=== PATIENT | male | born 1985 | race Caucasian/White ===

== ENCOUNTER 2018-01-22 10:58 | Inpatient (IN) | payer MEDICAID ==
[~2018-01-22] VITALS: Ht 152.4 cm; Wt 111.2 kg
[2018-01-22] MEDS: OXYcodone 5 MG/5 ML ORAL.SOL UDC PO PRN ×2 (08:45→18:45)
[2018-01-22] MEDS ORDERED: ONDANSETRON ODT 4 MG ONE (12:11)
[2018-01-22] MEDS ORDERED: MORPHINE SULFATE 4 MG/ML, 1ML ONE ×3 (12:12→19:09)
[2018-01-22 12:18] LABS: BASOPHILS % (AUTO) 0 % (0-1); EOSINOPHILS # (AUTO) 0.04 x10^3/uL (0-0.4); EOSINOPHILS % (AUTO) 0 % (1-7); LYMPHOCYTES % (AUTO) 6 % (22-44); MD NO; MEAN CORPUSCULAR HGB CONC 34.3 g/dL (33.2-36.2); MEAN CORPUSCULAR VOLUME 84.4 fL (81-97); MEAN PLATELET VOLUME 8.1 fL (7.4-10.4); MONOCYTES # (AUTO) 0.19 x10^3/uL (0.2-0.8); MONOCYTES % (AUTO) 2 % (2-9); NEUTROPHILS # (AUTO) 10.07 x10^3/uL (1.8-6.8); NEUTROPHILS % (AUTO) 92 % (42-75); PLATELET COUNT 230 x10^3/uL (130-400); RED BLOOD COUNT 5.84 x10^6/uL (4.38-5.82); RED CELL DISTRIBUTION WIDTH 12.8 % (9.4-14.8)
[2018-01-22] MEDS: MORPHINE SULFATE 4 MG/ML, 1ML IVPush PRN ×8 (12:20→19:25)
[2018-01-22] MEDS ORDERED: ONDANSETRON ODT 4 MG PO ONE (12:30)
[2018-01-22] MEDS ORDERED: SODIUM CHLORIDE 0.9% 1,000ML IV ONE (12:30)
[2018-01-22] MEDS ORDERED: SODIUM CHLORIDE FLUSH 10ML SYR IVF ONE (12:30)
[2018-01-22 12:31] LABS: ALANINE AMINOTRANSFERASE 57 U/L (12-78); ALBUMIN 4.6 g/dL (3.4-5.0); ANION GAP 9 mmol/L (5-15); CALCIUM 9.4 mg/dL (8.5-10.1); CHLORIDE 107 mmol/L (98-107); CREATININE 1.46 mg/dL (0.7-1.3)
[2018-01-22 12:33] LABS: ALKALINE PHOSPHATASE 81 U/L (45-117); BILIRUBIN,TOTAL 1.7 mg/dL (0.2-1.0); TOTAL PROTEIN 8.4 g/dL (6.4-8.2)
[2018-01-22 13:44] LABS: MICROSCOPIC AUTO
[2018-01-22 13:46] LABS: CULTURE INDICATED? NO
[2018-01-22] MEDS ORDERED: ONDANSETRON 2MG/ML, 2ML ONE ×2 (15:54→17:20)
[2018-01-22] MEDS ORDERED: ONDANSETRON 2MG/ML, 2ML IVPush ONE (16:00)
[2018-01-22] MEDS: SODIUM CHLORIDE 0.9% 1,000 ML IV SCH ×2 (17:03→23:43)
[2018-01-22] MEDS ORDERED: MIDAZOLAM 1 MG/ML, 2ML ONE (17:07)
[2018-01-22] MEDS ORDERED: EPINEPHRINE 1 MG/ML, 1ML ONE (17:09)
[2018-01-22] MEDS ORDERED: BUPIVACAINE/PF 0.25% ONE (17:09)
[2018-01-22] MEDS ORDERED: FENTANYL PF 250 MCG/5ML ONE (17:11)
[2018-01-22] MEDS ORDERED: ROCURONIUM 10 MG/ML,10ML ONE (17:20)
[2018-01-22] MEDS ORDERED: PROPOFOL 10 MG/ML, 50ML ONE (17:20)
[2018-01-22] MEDS ORDERED: SUCCINYLCHOLINE 20 MG/ML, 10ML ONE (17:20)
[2018-01-22] MEDS ORDERED: CEFAZOLIN 1,000 MG ONE (17:20)
[2018-01-22] MEDS ORDERED: DEXAMETHASONE 4 MG/ML, 1ML ONE (17:20)
[2018-01-22] MEDS ORDERED: hydrALAzine 20 MG/ML, 1ML IVPush PRN (17:30)
[2018-01-22] MEDS ORDERED: morphine SULFATE 10 MG/ML, 1ML IVPush PRN (17:30)
[2018-01-22] MEDS ORDERED: BUPIVACAINE/PF-EPI 0.25% 1:200K IM ONE (17:40)
[2018-01-22] MEDS ORDERED: MEPERIDINE/PF 50 MG/ML ONE (17:46)
[2018-01-22] MEDS ORDERED: SUGAMMADEX 200 MG/2 ML IVPush ONE (18:00)
[2018-01-22 18:45] LABS: FREE T4 (FREE THYROXINE) 0.94 ng/dL (0.76-1.46); THYROID STIMULATING HORMONE 1.16 mIU/L (0.358-3.740)
[2018-01-22] MEDS ORDERED: OXYcodone 5 MG/5 ML ORAL.SOL UDC ONE (18:49)
[2018-01-22] MEDS: FENTANYL PF 100 MCG/2ML IV PRN ×3 (18:50→19:05)
[2018-01-22] MEDS ORDERED: FENTANYL PF 100 MCG/2ML ONE (18:51)
[2018-01-22] MEDS ORDERED: ALBUTEROL SULFATE 2.5 MG/3 ML NPPB PRN (19:00)
[2018-01-22] MEDS ORDERED: hydrALAzine 20 MG/ML, 1ML IV PRN (19:00)
[2018-01-22] MEDS ORDERED: ACETAMINOPHEN 325 MG TABLET PO PRN (19:00)
[2018-01-22] MEDS ORDERED: LORazepam 2 MG/ML, 1ML IVPush PRN (19:00)
[2018-01-22] MEDS ORDERED: LABETALOL 5MG/ML, 20ML IV PRN (19:00)
[2018-01-22] MEDS ORDERED: PROMETHAZINE 25 MG/ML, 1ML IV PRN (19:00)
[2018-01-22] MEDS ORDERED: KETOROLAC 30 MG/1 ML IV PRN (19:00)
[2018-01-22] MEDS ORDERED: KETOROLAC 30 MG/1 ML ONE (19:01)
[2018-01-22] MEDS ORDERED: PROMETHAZINE 25 MG/ML, 1ML ONE (19:36)
[2018-01-22] MEDS ORDERED: MORPHINE SULFATE 4 MG/ML, 1ML IVPush PRN (21:00)
[2018-01-22] MEDS ORDERED: ONDANSETRON 2MG/ML, 2ML IVPush PRN (21:00)
[2018-01-22] MEDS: HYDROmorphone 2 MG/ML, 1ML IV PRN (22:34)
[2018-01-22] MEDS: LACTATED RINGERS 1,000 ML IV SCH (22:37)
[2018-01-22] MEDS: METRONIDAZOLE PMX 500MG/100ML 100 ML IV SCH (22:44)
[2018-01-22] MEDS: CEFTRIAXONE PMX 2GM/50ML 50 ML IV SCH (23:41)
[2018-01-23 01:30] VITALS: BP 114/72
[2018-01-23] MEDS: HYDROcodone/APAP 5/325 TABLET PO PRN ×2 (01:35→06:30)
[2018-01-23] MEDS: ONDANSETRON 2MG/ML, 2ML IVPush PRN ×3 (01:40→22:17)
[2018-01-23 02:10] LABS: BASOPHILS # (AUTO) 0.02 x10^3/uL (0-0.1); BASOPHILS % (AUTO) 0 % (0-1); EOSINOPHILS % (AUTO) 0 % (1-7); LYMPHOCYTES # (AUTO) 1.01 x10^3/uL (1-3.4); LYMPHOCYTES % (AUTO) 10 % (22-44); MD NO; MEAN CORPUSCULAR HGB CONC 34.1 g/dL (33.2-36.2); MEAN CORPUSCULAR VOLUME 85.2 fL (81-97); MEAN PLATELET VOLUME 7.7 fL (7.4-10.4); MONOCYTES # (AUTO) 0.37 x10^3/uL (0.2-0.8); MONOCYTES % (AUTO) 4 % (2-9); NEUTROPHILS # (AUTO) 8.94 x10^3/uL (1.8-6.8); NEUTROPHILS % (AUTO) 87 % (42-75); PLATELET COUNT 211 x10^3/uL (130-400); RED BLOOD COUNT 5.13 x10^6/uL (4.38-5.82)
[2018-01-23 02:21] LABS: ALANINE AMINOTRANSFERASE 40 U/L (12-78); ALBUMIN 3.6 g/dL (3.4-5.0); ANION GAP 9 mmol/L (5-15); CALCIUM 8.6 mg/dL (8.5-10.1); CHLORIDE 107 mmol/L (98-107)
[2018-01-23 02:23] LABS: ALKALINE PHOSPHATASE 62 U/L (45-117); BILIRUBIN,TOTAL 1.3 mg/dL (0.2-1.0); TOTAL PROTEIN 7.3 g/dL (6.4-8.2)
[2018-01-23 07:30] VITALS: BP 93/57
[2018-01-23] MEDS: PANTOPRAZOLE 40 MG IV IVPush SCH (07:47)
[2018-01-23] MEDS: METRONIDAZOLE PMX 500MG/100ML 100 ML IV SCH ×2 (07:48→15:14)
[2018-01-23] MEDS ORDERED: METHOCARBAMOL 500 MG TABLET PO PRN (08:00)
[2018-01-23] MEDS: SODIUM CHLORIDE 0.9% 1,000 ML IV SCH ×3 (09:00→22:20)
[2018-01-23] MEDS: OXYcodone/APAP 5/325MG TABLET PO PRN ×3 (12:12→21:39)
[2018-01-23] MEDS: LACTATED RINGERS 1,000 ML IV SCH (12:12)
[2018-01-23 12:18] VITALS: BP 110/69
[2018-01-23] MEDS: CEFTRIAXONE PMX 2GM/50ML 50 ML IV SCH (16:54)
[2018-01-23] MEDS ORDERED: ENOXAPARIN 30 MG/0.3 ML SQ SCH (19:30)
[2018-01-23] MEDS: ENOXAPARIN 40 MG/0.4 ML SQ SCH (19:55)
[2018-01-23 20:43] VITALS: BP 96/61
[2018-01-24] MEDS: LACTATED RINGERS 1,000 ML IV SCH ×2 (00:07→17:01)
[2018-01-24] MEDS: METRONIDAZOLE PMX 500MG/100ML 100 ML IV SCH ×2 (00:07→14:38)
[2018-01-24 02:18] VITALS: BP 104/69
[2018-01-24] MEDS: OXYcodone/APAP 5/325MG TABLET PO PRN ×5 (02:59→20:27)
[2018-01-24] MEDS ORDERED: PHARMACOKINETIC CONSULTATION MC ONE (03:30)
[2018-01-24] MEDS ORDERED: PHARMACOKINETIC MONITORING MC PRN (03:30)
[2018-01-24] MEDS ORDERED: VANCOMYCIN 2,000 MG in SODIUM CHLORIDE 0.9% 500 ML IV SCH (03:30)
[2018-01-24] MEDS ORDERED: VANCOMYCIN PER PHARMACY MC PRN (03:30)
[2018-01-24] MEDS: HYDROmorphone 2 MG/ML, 1ML IV PRN (04:09)
[2018-01-24 04:36] LABS: BASOPHILS # (AUTO) 0.02 x10^3/uL (0-0.1); BASOPHILS % (AUTO) 0 % (0-1); EOSINOPHILS # (AUTO) 0.07 x10^3/uL (0-0.4); EOSINOPHILS % (AUTO) 1 % (1-7); LYMPHOCYTES # (AUTO) 1.65 x10^3/uL (1-3.4); LYMPHOCYTES % (AUTO) 20 % (22-44); MD NO; MEAN CORPUSCULAR HEMOGLOBIN 28.9 pg (27.5-34.5); MEAN CORPUSCULAR HGB CONC 33.9 g/dL (33.2-36.2); MEAN CORPUSCULAR VOLUME 85.2 fL (81-97); MEAN PLATELET VOLUME 7.8 fL (7.4-10.4); MONOCYTES # (AUTO) 0.51 x10^3/uL (0.2-0.8); MONOCYTES % (AUTO) 6 % (2-9); NEUTROPHILS # (AUTO) 6.23 x10^3/uL (1.8-6.8); NEUTROPHILS % (AUTO) 73 % (42-75); PLATELET COUNT 184 x10^3/uL (130-400); RED BLOOD COUNT 4.59 x10^6/uL (4.38-5.82); RED CELL DISTRIBUTION WIDTH 13.1 % (9.4-14.8)
[2018-01-24 04:41] LABS: ALBUMIN 3.1 g/dL (3.4-5.0); ANION GAP 8 mmol/L (5-15); CALCIUM 7.6 mg/dL (8.5-10.1); CHLORIDE 106 mmol/L (98-107)
[2018-01-24 04:47] LABS: ALANINE AMINOTRANSFERASE 32 U/L (12-78); ALKALINE PHOSPHATASE 53 U/L (45-117); BILIRUBIN,TOTAL 0.9 mg/dL (0.2-1.0); CREATININE 1.21 mg/dL (0.7-1.3); TOTAL PROTEIN 6.3 g/dL (6.4-8.2)
[2018-01-24] MEDS: SODIUM CHLORIDE 0.9% 1,000 ML IV SCH ×2 (05:41→11:40)
[2018-01-24] MEDS: ONDANSETRON 2MG/ML, 2ML IVPush PRN ×3 (05:45→23:29)
[2018-01-24] MEDS: PIPERACILLIN/TAZO/PMX 3.375GM 50 ML IV SCH ×3 (06:15→23:16)
[2018-01-24 07:13] VITALS: BP 94/57
[2018-01-24] MEDS: PANTOPRAZOLE 40 MG IV IVPush SCH (08:12)
[2018-01-24] MEDS ORDERED: POTASSIUM PHOSPHATE 44 MEQ in SODIUM CHLORIDE 0.9% 500 ML IV ONE (09:00)
[2018-01-24] MEDS: ARTIFICIAL TEARS 15 DROP/ML BOTTLE EACHEYE PRN ×2 (12:11→17:01)
[2018-01-24 12:22] VITALS: BP 100/67
[2018-01-24 16:48] LABS: MICROSCOPIC NOT IND
[2018-01-24] MEDS: VANCOMYCIN 1,700 MG in SODIUM CHLORIDE 0.9% 250 ML IV SCH (16:56)
[2018-01-24 20:13] VITALS: BP 107/58
[2018-01-24] MEDS: ENOXAPARIN 40 MG/0.4 ML SQ SCH (20:27)
[2018-01-24 20:53] VITALS: BP 99/68
[2018-01-25] MEDS: LACTATED RINGERS 1,000 ML IV SCH (01:20)
[2018-01-25] MEDS: OXYcodone/APAP 5/325MG TABLET PO PRN ×2 (02:24→11:29)
[2018-01-25 02:46] VITALS: BP 110/76
[2018-01-25] MEDS: VANCOMYCIN 1,700 MG in SODIUM CHLORIDE 0.9% 250 ML IV SCH (05:05)
[2018-01-25 05:26] LABS: BASOPHILS # (AUTO) 0.04 x10^3/uL (0-0.1); BASOPHILS % (AUTO) 1 % (0-1); EOSINOPHILS # (AUTO) 0.29 x10^3/uL (0-0.4); EOSINOPHILS % (AUTO) 4 % (1-7); LYMPHOCYTES # (AUTO) 1.84 x10^3/uL (1-3.4); LYMPHOCYTES % (AUTO) 24 % (22-44); MD NO; MEAN CORPUSCULAR HEMOGLOBIN 29.1 pg (27.5-34.5); MEAN CORPUSCULAR HGB CONC 33.9 g/dL (33.2-36.2); MEAN CORPUSCULAR VOLUME 85.7 fL (81-97); MEAN PLATELET VOLUME 7.6 fL (7.4-10.4); MONOCYTES # (AUTO) 0.56 x10^3/uL (0.2-0.8); MONOCYTES % (AUTO) 7 % (2-9); NEUTROPHILS # (AUTO) 4.88 x10^3/uL (1.8-6.8); NEUTROPHILS % (AUTO) 64 % (42-75); PLATELET COUNT 205 x10^3/uL (130-400); RED BLOOD COUNT 4.58 x10^6/uL (4.38-5.82)
[2018-01-25 05:31] LABS: ANION GAP 6 mmol/L (5-15); CALCIUM 7.9 mg/dL (8.5-10.1); CHLORIDE 111 mmol/L (98-107)
[2018-01-25 05:36] LABS: ALANINE AMINOTRANSFERASE 26 U/L (12-78); ALKALINE PHOSPHATASE 51 U/L (45-117); BILIRUBIN,TOTAL 1.1 mg/dL (0.2-1.0); CREATININE 1.09 mg/dL (0.7-1.3); TOTAL PROTEIN 6.3 g/dL (6.4-8.2)
[2018-01-25 06:50] VITALS: BP 109/74
[2018-01-25] MEDS: PIPERACILLIN/TAZO/PMX 3.375GM 50 ML IV SCH (07:26)
[2018-01-25] MEDS: PANTOPRAZOLE 40 MG IV IVPush SCH (07:27)
[2018-01-25] MEDS ORDERED: CEPH-367 PO (08:57)
[2018-01-25] MEDS ORDERED: OXYC1TAB7 PO (08:57)
[2018-01-25 11:46] VITALS: BP 116/78
== END 2018-01-25 12:26 | disposition home or self-care (01) | DRG 353 ==
LOC: ED 13:22 → EDIP 16:16 → 4NOR 20:15 → DCLOUNGE 01-25 12:12
PROVIDERS: ADMIT Internal Medicine; ATTEND Internal Medicine
PROC: 0WUF0JZ Supplement Abdominal Wall with Synthetic Substitute, Open Approach (ICD-10-PCS; principal; 2018-01-22 17:00)
DX: K42.0 Umbilical hernia with obstruction, without gangrene (principal); N17.0 Acute kidney failure with tubular necrosis; R65.10 Systemic inflammatory response syndrome (SIRS) of non-infectious origin without acute organ dysfunction; J98.11 Atelectasis; D72.829 Elevated white blood cell count, unspecified; M51.35 Other intervertebral disc degeneration, thoracolumbar region; K43.6 Other and unspecified ventral hernia with obstruction, without gangrene; E66.01 Morbid (severe) obesity due to excess calories; E83.39 Other disorders of phosphorus metabolism; E86.0 Dehydration; F43.10 Post-traumatic stress disorder, unspecified; Z68.42 Body mass index [BMI] 45.0-49.9, adult; J45.909 Unspecified asthma, uncomplicated; K21.9 Gastro-esophageal reflux disease without esophagitis; Z98.52 Vasectomy status; E80.6 Other disorders of bilirubin metabolism; M17.0 Bilateral primary osteoarthritis of knee; M50.30 Other cervical disc degeneration, unspecified cervical region; Z88.8 Allergy status to other drugs, medicaments and biological substances; Z82.49 Family history of ischemic heart disease and other diseases of the circulatory system
CPT/HCPCS: 36415; 71045; 74176; 76870; 80053; 81001; 81003; 83605; 83735; 84100; 84145; 84439; 84443; 85025; 87040; 96361; 96374; 96375; 96376; J0171; J0690; J0696; J1100; J1170; J1650; J1885; J2175; J2250; J2405; J2543; J2704; J3010; J3370; J3490; Q0162; C1781; C9113; J0330; J7030; J7040; J7050; J7120

== ENCOUNTER 2019-10-19 20:12 | Inpatient (IN) | payer MEDICAID ==
[~2019-10-19] VITALS: Ht 172.7 cm; Wt 118.0 kg
[~2019-10-19 20:12] MED LIST: CEPH-367 PO; OXYC1TAB7 PO
--- NOTE | 2019-10-19 21:02 | NUR ---
Pt presents to room reporting onset of abdominal pain at 1100 today. Pt has Hx of hernia and has protrusion from his abdomen in the room. Pt states the pain caused him to leave work today as he became nauseated and dizzy also. Pt cannot tell if the hernia is protruding more with this pain but states it is firm now that the pain has developed.
[2019-10-19] MEDS ORDERED: HYDROmorphone 1 MG/ML, 1ML INJ ONE ×2 (21:50→23:16)
[2019-10-19] MEDS ORDERED: ONDANSETRON 2MG/ML, 2ML ONE (21:50)
[2019-10-19] MEDS ORDERED: ONDANSETRON 2MG/ML, 2ML IVPush ONE (22:00)
[2019-10-19] MEDS: HYDROmorphone 2 MG/ML, 1ML IVPush PRN ×2 (22:00→23:21)
[2019-10-19 22:09] LABS: ALBUMIN 3.9 g/dL (3.4-5.0); ANION GAP 5 mmol/L (5-15); CALCIUM 9.2 mg/dL (8.5-10.1); CHLORIDE 106 mmol/L (98-107)
[2019-10-19 22:12] LABS: ALANINE AMINOTRANSFERASE 51 U/L (12-78); ALKALINE PHOSPHATASE 65 U/L (45-117); CREATININE 1.08 mg/dL (0.7-1.3); TOTAL PROTEIN 7.4 g/dL (6.4-8.2)
[2019-10-19 22:16] LABS: BASOPHILS # (AUTO) 0.03 x10^3/uL (0-0.1); BASOPHILS % (AUTO) 0 % (0-1); EOSINOPHILS # (AUTO) 0.19 x10^3/uL (0-0.4); EOSINOPHILS % (AUTO) 2 % (1-7); LYMPHOCYTES # (AUTO) 1.97 x10^3/uL (1-3.4); LYMPHOCYTES % (AUTO) 19 % (22-44); MD NO; MEAN CORPUSCULAR HEMOGLOBIN 28.2 pg (27.5-34.5); MEAN CORPUSCULAR HGB CONC 33.5 g/dL (33.2-36.2); MEAN CORPUSCULAR VOLUME 84.2 fL (81-97); MONOCYTES % (AUTO) 4 % (2-9); NEUTROPHILS # (AUTO) 8.01 x10^3/uL (1.8-6.8); NEUTROPHILS % (AUTO) 76 % (42-75); PLATELET COUNT 229 x10^3/uL (130-400); RED BLOOD COUNT 5.34 x10^6/uL (4.38-5.82); RED CELL DISTRIBUTION WIDTH 12.9 % (9.4-14.8)
--- NOTE | 2019-10-19 22:46 | NUR ---
Pt returned from CT. CT reports pt vomited en route. Pt states he had some persistent nausea after meds but that is better since he vomited.
[2019-10-20] MEDS ORDERED: SODIUM CHLORIDE 0.9% 1,000 ML IV ONE (00:48)
[2019-10-20] MEDS ORDERED: MORPHINE SULFATE 4 MG/ML, 1ML IVPush PRN (01:00)
--- NOTE | 2019-10-20 01:26 | NUR ---
Report given to Tres MENA
--- NOTE | 2019-10-20 01:31 | NUR ---
BREAK RN: PT RESTING ON [facility]AV[facility] JONES, MONITORS IN PLACE, CALL LIGHT WITHIN REACH. AWAITING TRANSFER FOR ADMIT
[2019-10-20 02:16] VITALS: BP 109/76
[2019-10-20] MEDS ORDERED: OMNIPAQUE 350 MG/ML, 100ML BOTTLE ONE (04:33)
[2019-10-20] MEDS ORDERED: ONDANSETRON 2MG/ML, 2ML IVPush PRN (05:00)
[2019-10-20] MEDS ORDERED: morphine SULFATE 10 MG/ML, 1ML IVPush PRN (05:00)
[2019-10-20] MEDS ORDERED: DIAZEPAM 5 MG/ML, 2ML IV PRN (05:00)
[2019-10-20 05:03] LABS: MICROSCOPIC NOT IND
[2019-10-20 05:09] LABS: CULTURE INDICATED? NO
[2019-10-20] MEDS: ONDANSETRON 2MG/ML, 2ML IVPush PRN ×2 (06:25→10:45)
[2019-10-20 08:00] VITALS: BP 118/74
[2019-10-20] MEDS: LACTATED RINGERS 1,000 ML IV SCH ×2 (08:21→15:10)
[2019-10-20 12:04] VITALS: BP 105/66
[2019-10-20 18:46] VITALS: BP 121/86
[2019-10-20] MEDS ORDERED: PROMETHAZINE 25 MG/ML, 1ML IM PRN (20:00)
[2019-10-20] MEDS: KETOROLAC 30 MG/1 ML IVPush PRN (20:05)
[2019-10-21] MEDS: LACTATED RINGERS 1,000 ML IV SCH ×3 (00:37→16:19)
[2019-10-21 01:17] VITALS: BP 108/73
[2019-10-21] MEDS: KETOROLAC 30 MG/1 ML IVPush PRN ×3 (05:11→18:24)
[2019-10-21 05:44] LABS: ANION GAP 4 mmol/L (5-15); CALCIUM 8.4 mg/dL (8.5-10.1); CHLORIDE 108 mmol/L (98-107); CREATININE 1.14 mg/dL (0.7-1.3)
[2019-10-21 05:54] LABS: BASOPHILS # (AUTO) 0.03 x10^3/uL (0-0.1); BASOPHILS % (AUTO) 0 % (0-1); EOSINOPHILS # (AUTO) 0.24 x10^3/uL (0-0.4); EOSINOPHILS % (AUTO) 4 % (1-7); LYMPHOCYTES # (AUTO) 1.89 x10^3/uL (1-3.4); LYMPHOCYTES % (AUTO) 28 % (22-44); MD NO; MEAN CORPUSCULAR HEMOGLOBIN 28.3 pg (27.5-34.5); MEAN CORPUSCULAR HGB CONC 33.8 g/dL (33.2-36.2); MEAN CORPUSCULAR VOLUME 83.6 fL (81-97); MEAN PLATELET VOLUME 7.7 fL (7.4-10.4); MONOCYTES # (AUTO) 0.47 x10^3/uL (0.2-0.8); MONOCYTES % (AUTO) 7 % (2-9); NEUTROPHILS # (AUTO) 4.26 x10^3/uL (1.8-6.8); NEUTROPHILS % (AUTO) 62 % (42-75); PLATELET COUNT 196 x10^3/uL (130-400); RED BLOOD COUNT 5.02 x10^6/uL (4.38-5.82); RED CELL DISTRIBUTION WIDTH 12.9 % (9.4-14.8)
[2019-10-21 07:42] VITALS: BP 117/80
[2019-10-21] MEDS ORDERED: BISACODYL 10 MG SUPP PR ONE (13:00)
[2019-10-21] MEDS: METOCLOPRAMIDE 5 MG/ML, 2ML IV SCH ×3 (13:06→22:02)
[2019-10-21 13:17] VITALS: BP 117/81
[2019-10-21 19:31] VITALS: BP 111/80
[2019-10-22] MEDS: KETOROLAC 30 MG/1 ML IVPush PRN ×4 (00:48→21:58)
[2019-10-22] MEDS: LACTATED RINGERS 1,000 ML IV SCH ×3 (00:49→21:58)
[2019-10-22 01:57] VITALS: BP 107/64
[2019-10-22] MEDS: METOCLOPRAMIDE 5 MG/ML, 2ML IV SCH ×4 (04:13→21:58)
[2019-10-22 06:19] LABS: CHLORIDE 108 mmol/L (98-107)
[2019-10-22 06:34] LABS: ANION GAP 8 mmol/L (5-15); CALCIUM 8.2 mg/dL (8.5-10.1); CREATININE 0.97 mg/dL (0.7-1.3)
[2019-10-22 06:39] VITALS: BP 103/68
[2019-10-22] MEDS ORDERED: POTASSIUM CHLORIDE 40 MEQ in SODIUM CHLORIDE 0.9% 500 ML IV ONE (09:30)
[2019-10-22 13:47] VITALS: BP 127/88
[2019-10-22 19:42] VITALS: BP 111/76
[2019-10-23] MEDS: METOCLOPRAMIDE 5 MG/ML, 2ML IV SCH ×4 (04:08→22:06)
[2019-10-23] MEDS: KETOROLAC 30 MG/1 ML IVPush PRN (04:08)
[2019-10-23 04:32] VITALS: BP 110/66
[2019-10-23] MEDS: LACTATED RINGERS 1,000 ML IV SCH ×2 (04:54→12:30)
[2019-10-23 06:20] LABS: INTERNATIONAL NORMALIZED RATIO 1.01 (0.93-1.1); PROTHROMBIN TIME 10.7 Seconds (9.6-11.5)
[2019-10-23 06:29] VITALS: BP 126/73
[2019-10-23 06:56] LABS: ANION GAP 8 mmol/L (5-15); CALCIUM 8.6 mg/dL (8.5-10.1); CHLORIDE 110 mmol/L (98-107); CREATININE 0.85 mg/dL (0.7-1.3)
[2019-10-23 12:31] VITALS: BP 132/86
[2019-10-23] MEDS ORDERED: BUPIVACAINE/PF-EPI 0.5% 1:200K ONE (14:53)
[2019-10-23] MEDS ORDERED: MIDAZOLAM 1 MG/ML, 2ML ONE (15:10)
[2019-10-23] MEDS ORDERED: FENTANYL PF 250 MCG/5ML ONE (15:11)
[2019-10-23] MEDS ORDERED: PHENYLEPHRINE 10 MG/ML ONE (15:25)
[2019-10-23] MEDS ORDERED: MEPERIDINE/PF 100 MG/ML ONE (15:52)
[2019-10-23] MEDS ORDERED: ALBUTEROL SULFATE 2.5 MG/3 ML NPPB PRN (16:30)
[2019-10-23] MEDS ORDERED: HALOPERIDOL 5 MG/ML IV PRN (16:30)
[2019-10-23] MEDS ORDERED: hydrALAzine 20 MG/ML, 1ML IV PRN (16:30)
[2019-10-23] MEDS ORDERED: ACETAMINOPHEN 325 MG TABLET PO PRN (16:30)
[2019-10-23] MEDS ORDERED: METHOCARBAMOL 1,000 MG in DEXTROSE 5% 100 ML IV PRN (16:30)
[2019-10-23] MEDS ORDERED: FENTANYL PF 100 MCG/2ML IV PRN (16:30)
[2019-10-23] MEDS ORDERED: OXYcodone 5 MG/5 ML ORAL.SOL UDC PO PRN (16:30)
[2019-10-23] MEDS ORDERED: MEPERIDINE/PF 25MG/ML,1ML IVPush PRN (16:30)
[2019-10-23] MEDS ORDERED: CEFOTETAN PMX 2GM/50ML 50 ML ONE (17:12)
[2019-10-23] MEDS ORDERED: SUGAMMADEX 200 MG/2 ML IVPush ONE (17:12)
[2019-10-23] MEDS ORDERED: ONDANSETRON 2MG/ML, 2ML ONE (17:12)
[2019-10-23] MEDS ORDERED: PROPOFOL 10 MG/ML, 20ML ONE (17:12)
[2019-10-23] MEDS ORDERED: LIDOCAINE-MPF 2% ,5ML ONE (17:12)
[2019-10-23] MEDS ORDERED: DEXAMETHASONE 4 MG/ML, 1ML ONE (17:12)
[2019-10-23] MEDS ORDERED: ROCURONIUM 10MG/ML,5ML ONE (17:12)
[2019-10-23] MEDS ORDERED: MEPERIDINE/PF 50 MG/ML ONE (17:25)
[2019-10-23] MEDS ORDERED: HYDROmorphone 1 MG/ML, 1ML INJ ONE (18:03)
[2019-10-23] MEDS ORDERED: OXYcodone 5 MG/5 ML ORAL.SOL UDC ONE (18:03)
[2019-10-23] MEDS: HYDROmorphone 2 MG/ML, 1ML IVPush PRN ×2 (18:12→18:30)
[2019-10-23 19:18] VITALS: BP 136/82
[2019-10-23] MEDS: POTASSIUM CHLORIDE 20 MEQ in D5%-0.45% NACL 1,000 ML IV SCH (19:47)
[2019-10-23] MEDS: morphine SULFATE 10 MG/ML, 1ML IV PRN ×2 (22:10→22:45)
[2019-10-24 00:07] VITALS: BP 97/66
[2019-10-24] MEDS: ONDANSETRON 2MG/ML, 2ML IV PRN ×3 (02:55→16:01)
[2019-10-24] MEDS: morphine SULFATE 10 MG/ML, 1ML IV PRN ×5 (03:00→19:40)
[2019-10-24] MEDS: POTASSIUM CHLORIDE 20 MEQ in D5%-0.45% NACL 1,000 ML IV SCH ×3 (03:30→20:23)
[2019-10-24] MEDS: CEFOTETAN PMX 1GM/50ML 50 ML IVPB SCH ×2 (03:45→16:00)
[2019-10-24 04:34] VITALS: BP 100/61
[2019-10-24] MEDS: METOCLOPRAMIDE 5 MG/ML, 2ML IV SCH ×4 (04:55→22:08)
[2019-10-24 06:19] VITALS: BP 104/66
[2019-10-24 06:28] LABS: BASOPHILS # (AUTO) 0.01 x10^3/uL (0-0.1); BASOPHILS % (AUTO) 0 % (0-1); EOSINOPHILS % (AUTO) 0 % (1-7); LYMPHOCYTES # (AUTO) 0.77 x10^3/uL (1-3.4); LYMPHOCYTES % (AUTO) 7 % (22-44); MD NO; MEAN CORPUSCULAR HEMOGLOBIN 28.7 pg (27.5-34.5); MEAN CORPUSCULAR HGB CONC 33.9 g/dL (33.2-36.2); MEAN CORPUSCULAR VOLUME 84.5 fL (81-97); MEAN PLATELET VOLUME 7.7 fL (7.4-10.4); MONOCYTES # (AUTO) 0.55 x10^3/uL (0.2-0.8); MONOCYTES % (AUTO) 5 % (2-9); NEUTROPHILS % (AUTO) 88 % (42-75); PLATELET COUNT 218 x10^3/uL (130-400); RED BLOOD COUNT 4.79 x10^6/uL (4.38-5.82); RED CELL DISTRIBUTION WIDTH 12.8 % (9.4-14.8)
[2019-10-24] MEDS ORDERED: KETOROLAC 10MG TABLET PO PRN (08:00)
[2019-10-24] MEDS: KETOROLAC 10MG TABLET PO PRN ×3 (10:31→22:08)
[2019-10-24 12:47] VITALS: BP 110/71
[2019-10-24 20:06] VITALS: BP 103/73
[2019-10-25 01:16] VITALS: BP 104/61
[2019-10-25] MEDS: morphine SULFATE 10 MG/ML, 1ML IV PRN ×2 (01:25→12:01)
[2019-10-25] MEDS: ONDANSETRON 2MG/ML, 2ML IV PRN ×2 (01:30→12:06)
[2019-10-25] MEDS: KETOROLAC 10MG TABLET PO PRN ×3 (03:59→19:08)
[2019-10-25] MEDS: METOCLOPRAMIDE 5 MG/ML, 2ML IV SCH ×4 (03:59→22:14)
[2019-10-25] MEDS: POTASSIUM CHLORIDE 20 MEQ in D5%-0.45% NACL 1,000 ML IV SCH ×3 (04:32→21:07)
[2019-10-25 05:55] LABS: ANION GAP 4 mmol/L (5-15); CHLORIDE 109 mmol/L (98-107)
[2019-10-25 05:57] LABS: CREATININE 1.19 mg/dL (0.7-1.3)
[2019-10-25 05:59] LABS: BASOPHILS # (AUTO) 0.03 x10^3/uL (0-0.1); BASOPHILS % (AUTO) 0 % (0-1); EOSINOPHILS # (AUTO) 0.22 x10^3/uL (0-0.4); EOSINOPHILS % (AUTO) 2 % (1-7); LYMPHOCYTES # (AUTO) 1.68 x10^3/uL (1-3.4); LYMPHOCYTES % (AUTO) 18 % (22-44); MD NO; MEAN CORPUSCULAR HEMOGLOBIN 28.3 pg (27.5-34.5); MEAN CORPUSCULAR HGB CONC 33.4 g/dL (33.2-36.2); MEAN CORPUSCULAR VOLUME 84.8 fL (81-97); MEAN PLATELET VOLUME 7.7 fL (7.4-10.4); MONOCYTES # (AUTO) 0.54 x10^3/uL (0.2-0.8); MONOCYTES % (AUTO) 6 % (2-9); NEUTROPHILS # (AUTO) 6.64 x10^3/uL (1.8-6.8); NEUTROPHILS % (AUTO) 73 % (42-75); PLATELET COUNT 218 x10^3/uL (130-400); RED BLOOD COUNT 4.58 x10^6/uL (4.38-5.82); RED CELL DISTRIBUTION WIDTH 13.2 % (9.4-14.8)
[2019-10-25 06:33] VITALS: BP 98/65
[2019-10-25 13:00] VITALS: BP 117/78
[2019-10-25] MEDS: FAMOTIDINE 20 MG TABLET PO SCH ×2 (13:25→21:07)
[2019-10-25] MEDS: OXYcodone/APAP 5/325MG TABLET PO PRN ×3 (16:27→22:54)
[2019-10-25 19:21] VITALS: BP 119/79
[2019-10-26 02:20] VITALS: BP_SYST 121; BP_DIAS 75; BP_DIAS 78
[2019-10-26] MEDS: KETOROLAC 10MG TABLET PO PRN ×3 (04:06→21:02)
[2019-10-26] MEDS: METOCLOPRAMIDE 5 MG/ML, 2ML IV SCH ×4 (04:06→21:51)
[2019-10-26] MEDS: OXYcodone/APAP 5/325MG TABLET PO PRN ×3 (05:06→21:51)
[2019-10-26] MEDS: POTASSIUM CHLORIDE 20 MEQ in D5%-0.45% NACL 1,000 ML IV SCH (05:06)
[2019-10-26 08:42] VITALS: BP 124/89
[2019-10-26] MEDS: FAMOTIDINE 20 MG TABLET PO SCH ×2 (08:57→21:02)
[2019-10-26] MEDS: ONDANSETRON 2MG/ML, 2ML IV PRN (08:58)
[2019-10-26 12:06] VITALS: BP 127/89
[2019-10-26 19:21] VITALS: BP 118/79
[2019-10-26] MEDS: ALUMINUM/MAG/SIMETHICONE 30 ML UDC PO PRN (21:51)
[2019-10-27 01:10] VITALS: BP 104/67
[2019-10-27] MEDS: KETOROLAC 10MG TABLET PO PRN (04:06)
[2019-10-27] MEDS: METOCLOPRAMIDE 5 MG/ML, 2ML IV SCH ×2 (04:06→10:12)
[2019-10-27] MEDS: ALUMINUM/MAG/SIMETHICONE 30 ML UDC PO PRN (04:36)
[2019-10-27 07:59] VITALS: BP 111/78
[2019-10-27] MEDS: FAMOTIDINE 20 MG TABLET PO SCH (10:12)
[2019-10-27] MEDS ORDERED: OXYcodone/APAP 5/325MG PO (10:27)
[2019-10-27] MEDS ORDERED: DOCU-131 PO (10:33)
[2019-10-27] MEDS: OXYcodone/APAP 5/325MG TABLET PO PRN (13:31)
== END 2019-10-27 13:50 | disposition home or self-care (01) | DRG 355 ==
LOC: ED 23:05 → EDIP 10-20 01:16 → 4NE 10-20 02:05 → DCLOUNGE 10-27 13:36
PROVIDERS: ADMIT Family Medicine; ATTEND Family Medicine
PROC: 0WUF0JZ Supplement Abdominal Wall with Synthetic Substitute, Open Approach (ICD-10-PCS; principal; 2019-10-23 15:30)
DX: K43.0 Incisional hernia with obstruction, without gangrene (principal); E66.9 Obesity, unspecified; F43.10 Post-traumatic stress disorder, unspecified; Z68.39 Body mass index [BMI] 39.0-39.9, adult; G89.29 Other chronic pain; J45.909 Unspecified asthma, uncomplicated; K21.9 Gastro-esophageal reflux disease without esophagitis; M17.0 Bilateral primary osteoarthritis of knee; M51.35 Other intervertebral disc degeneration, thoracolumbar region; Z88.8 Allergy status to other drugs, medicaments and biological substances; Z83.3 Family history of diabetes mellitus; M54.9 Dorsalgia, unspecified
CPT/HCPCS: 36415; 74018; 74250; 96374; 96375; 96376; 99285; J3490; 74177; 80048; 80053; 81003; 83605; 83690; 83735; 84100; 85025; 85610; 93005; G0378; J1100; J1170; J1885; J2175; J2250; J2405; J2704; J3010; J3360; J3480; Q9967; C1781; J2270; J2370; J2765; J7030; J7040; J7120

== ENCOUNTER → 2020-06-18 | Outpatient (CLI) | payer MEDICAID ==
[~2020-06-18] MED LIST changes: +DOCU-131 PO; +OMNIPAQUE 350 MG/ML, 100ML BOTTLE ONE; +OXYcodone/APAP 5/325MG PO
== END | disposition home or self-care (01) ==
LOC: CFH 12:00
PROVIDERS: ATTEND Surgery
DX: K44.9 Diaphragmatic hernia without obstruction or gangrene (principal); K76.0 Fatty (change of) liver, not elsewhere classified; K43.9 Ventral hernia without obstruction or gangrene
CPT/HCPCS: 74177; Q9967